=== PATIENT | female | born 1970 | race Caucasian/White ===

== ENCOUNTER 2020-10-04 22:03 | Emergency (ER) | payer OTHER, SELFPAY ==
[2020-10-04 22:10] VITALS: BP 198/88; PULSE 105; RESP 20; TEMP 36.5; O2SAT 97
--- NOTE | 2020-10-04 22:20 | ED.HA ---
HPI - Headache General Chief Complaint: Headache Stated Complaint: swelling in face Source: patient and RN notes reviewed Mode of arrival: ambulatory Limitations: no limitations History of Present Illness HPI Narrative: patient states her headache came after the sinus pressure on the left side of her face. She says it feels like she has had some sinus swelling. She has a history of sinusitis. She has not had any fever or chills. She has only had symptoms for 1 day. MD elicited complaint: headache Onset (ago): day(s) (1) Onset description: gradually Severity: similar to previous episodes Quality & Timing: throbbing Exacerbating factors: other ( Bending over) Associated symptoms: other ( sinus pressure) Treatments prior to arrival: acetaminophen, ibuprofen and other ( Benadryl and tramadol) Related Data Home Medications Medication Instructions Recorded Confirmed tramadol 50 mg PO PRN PRN 10/04/20 10/04/20 Allergies Allergy/AdvReac Type Severity Reaction Status Date / Time codeine Allergy Unknown Unknown Verified 10/04/20 22:16 Review of Systems Review of Systems: All systems reviewed & are unremarkable except as noted in HPI and below Constitutional: Constitutional: Denies chills and Denies fever(s) ENT: Reports nasal congestion and Denies sore throat PMFSH Past Medical History Medical History (Updated 10/04/20 @ 22:39 by Jose Manuel Chadwick MD) De Quervain's disease (tenosynovitis) Surgical History Surgical History (Updated 10/04/20 @ 22:39 by Jose Manuel Chadwick MD) Delivery by section History of bladder suspension procedure History of hysterectomy with bilateral oophorectomy Status post de Quervain's release surgery Family History Family History (Updated 08/14/14 @ 10:54 by DOCTOR UNKNOWN) Other Diabetes mellitus Family history of arthritis Family history of cardiovascular disease Family history of malignant neoplasm Family history of osteoporosis Social History Social History (Updated 10/04/20 @ 22:40 by Jose Manuel Chadwick MD) Smoking packs per day: 1 Smoking cigarettes per day: 20.0 Smoking status: Current every day smoker Tobacco type: cigarettes Alcohol intake: never Substance use: never Exam Const: General: healthy appearing and no acute distress Nutritional Appearance: well nourished Orientation/consciousness: patient oriented x3 Other: female 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 room 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 examination HENMT: Head: normal to inspection Ears: external ears normal, TM's normal bilaterally and EAC's normal General nose exam: Abnormal mucous membranes and turbinates present boggy bilateral and erythematous bilateral Face and sinus: sinus tenderness frontal (left) and maxillary (left) Mouth: Yes Normal oral and palatal mucosa present and Yes moist mucous membranes Throat: posterior oropharynx normal, tonsils normal and uvula midline Eyes: Conjunctivae: conjunctivae normal Pupils: Equal, round and reactive pupils present EOM: EOMs intact bilaterally Neck: Neck: normal visual inspection Resp: Effort & Inspection: normal respiratory effort Auscultation: clear to auscultation bilaterally Cardio: Rate: regular rate Rhythm: regular rhythm GI: GI Palp: Yes Soft to palpation and No Tenderness to palpation present (GI) Auscultation: normal bowel sounds Back/Spine/Pelvis: Cervical Spine: cervical ROM normal Thoracic/Lumbar Spine: thoraco-lumbar ROM normal Skin: General skin exam: normal color Rashes: no rashes Neuro: General: patient oriented x3, moves all extremities, no meningeal signs and no focal motor deficits Speech: normal speech Gait exam (Neuro): Normal gait present Extrem: General: normal to inspection and no clubbing, cyanosis or edema Psych: Appearance: grossly normal and well kempt Mental Status: mental status grossly normal Affect: normal affect Attitude: cooperative Thought content: Yes Normal thought content present Course Course Emergency Course: I josette
[2020-10-04 22:39] VITALS: BP 171/95; PULSE 80; RESP 20; O2SAT 98
== END 2020-10-04 22:40 | disposition home or self-care (01) ==
PROVIDERS: Emergency Provider Emergency Medicine; PCP Physician Assistant
DX: J01.00 Acute maxillary sinusitis, unspecified (principal)
CPT/HCPCS: 99281; 99282

== ENCOUNTER 2021-03-01 10:55 | Outpatient (CLI) | payer OTHER, SELFPAY ==
[2021-03-01 11:56] LABS: SARS-CoV-2 RNA PCR Negative (Negative)
== END 2021-03-01 10:56 | disposition home or self-care (01) ==
LOC: CHSLAB 10:57
PROVIDERS: PCP Physician Assistant; Visit Provider Physician Assistant
DX: Z20.822 Contact with and (suspected) exposure to COVID-19 (principal)
CPT/HCPCS: C9803; U0003; U0005

== ENCOUNTER 2021-06-06 15:03 | Outpatient (CLI) | payer OTHER, SELFPAY ==
[2021-06-06 16:36] LABS: SARS-CoV-2 RNA PCR Positive (Negative)
== END 2021-06-06 15:04 | disposition home or self-care (01) ==
LOC: CHSLAB 15:06
PROVIDERS: PCP Physician Assistant; Visit Provider Physician Assistant
DX: U07.1 COVID-19 (principal); B34.9 Viral infection, unspecified
CPT/HCPCS: C9803; U0003; U0005

== ENCOUNTER 2022-12-31 13:57 | Emergency (ER) | payer OTHER, SELFPAY ==
--- NOTE | ~2022-12-31 | XR_ITS ---
Clinical Indication: Shortness of breath, cough PA and lateral views of the chest: Comparison: 05/12/2014 Findings: The lungs are clear, without evidence of focal consolidation or pleural effusion. Cardiome diastinal silhouette is within normal limits. Bones and soft tissues are unremarkable. Impression: Normal chest. Reviewed, dictated and finalized at location . Impression: Normal chest.
--- NOTE | 2022-12-31 14:00 | ECG_ITS ---
Measurements Intervals Ozan Rate: 97 P: 78 ID: 128 QRS: 87 QRSD: 85 T: -10 QT: 357 QTc: 454 Interpretive Statements SINUS RHYTHM NONSPECIFIC ST & T-WAVE ABNORMALITY NO PREVIOUS ECG AVAILABLE FOR COMPARISON Electronically Signed On 12-31-2022 14:57:13 CDT by Jessica Guillaume M.D.
--- NOTE | 2022-12-31 14:02 | ED.SOB ---
HPI - SOB/Dyspnea General Chief Complaint: Shortness of Breath/Dyspnea Stated Complaint: chest pain Time Seen by Provider: 12/31/22 14:00 Source: patient Mode of arrival: ambulatory Limitations: no limitations History of Present Illness HPI Narrative: patient is a 52-year-old female with breathing shortness of breath and chest discomfort. Left shoulder pain. She has been coughing a lot lately. MD elicited complaint: shortness of breath, cough and pain with inspiration Pertinent past history: COPD Onset (ago): day(s) Timing: constant Severity: moderate Exacerbating factors: nothing Relieving factors: nothing Associated symptoms: pain with inspiration Treatment prior to arrival: none Related Data Home oxygen amount: none Allergies Allergy/AdvReac Type Severity Reaction Status Date / Time codeine Allergy Unknown Unknown Verified 10/04/20 22:16 Review of Systems Review of Systems: All systems reviewed & are unremarkable except as noted in HPI and below Constitutional: Constitutional: Reports no additional constitutional complaints Eyes: Eyes: Reports no additional eye complaints ENT: Reports system reviewed and no additional complaints, except as documented Cardiovascular: Cardiovascular: Reports no additional cardiovascular complaints Respiratory: Respiratory: Reports no additional respiratory complaints Gastrointestinal: Gastrointestinal: Reports no additional gastrointestinal complaints Genitourinary: Genitourinary: Reports no additional female genitourinary complaints Musculoskeletal: Musculoskeletal: Reports no additional musculoskeletal complaints Integumentary/Breasts: Skin/Breast: Reports system reviewed and no additional complaints, except as docu Neurologic: Reports system reviewed and no additional complaints, except as documented Psychiatric: Psychiatric: Reports no additional psychiatric complaints Endocrine: Endocrine: Reports no additional endocrine complaints Hematologic/Lymphatic: Hematologic/Lymphatic: Reports no additional hematologic/lymphatic complaints Allergic/Immunologic: Allergic/Immunologic: Reports no additional allergic/immunologic complaints [facility] Past Medical History Medical History De Quervain's disease (tenosynovitis) Surgical History Surgical History Delivery by section History of bladder suspension procedure History of hysterectomy with bilateral oophorectomy Status post de Quervain's release surgery Family History Family History Other Diabetes mellitus Family history of arthritis Family history of cardiovascular disease Family history of malignant neoplasm Family history of osteoporosis Social History Social History Smoking packs per day: 1 Smoking cigarettes per day: 20.0 Smoking status: Current every day smoker Tobacco type: cigarettes Alcohol intake: never Substance use: never Exam Const: General: healthy appearing Nutritional Appearance: well nourished HENMT: Head: normal to inspection Ears: external ears normal Eyes: Conjunctivae: conjunctivae normal Pupils: Equal, round and reactive pupils present Neck: Neck: normal visual inspection Chest: Chest palpation & inspection: normal inspection of the chest Resp: Effort & Inspection: normal respiratory effort Auscultation: wheezes Cardio: Rate: regular rate Rhythm: regular rhythm Heart sounds: no murmurs GI: Inspection: non-distended GI Palp: Yes Soft to palpation and No Tenderness to palpation present (GI) : General: Yes bladder normal to palpation Back/Spine/Pelvis: Back: no CVA tenderness Skin: General skin exam: normal color Rashes: no rashes Neuro: General: patient oriented x3, moves all extremities and no meningeal signs Extrem: G
[2022-12-31 14:17] VITALS: O2SAT 95
[2022-12-31] MEDS: IPRATROPIUM 0.5 MG/ALBUTEROL SULFATE 2.5 MG AMPUL.NEB 3 ML INHALATION (14:30)
[2022-12-31 14:37] VITALS: PULSE 93; RESP 18; O2SAT 94
[2022-12-31 14:47] VITALS: BP 146/68; PULSE 95; RESP 20; TEMP 36.8; O2SAT 96
[2022-12-31] MEDS: methylPREDNISolone SOD SUCC 125 MG VIAL IM (14:47)
[2022-12-31 14:51] VITALS: PULSE 93; RESP 18; O2SAT 94
[2022-12-31 14:54] LABS: Basophils Absolute Auto 0.03 K/mm3 (0.00-0.10); Basophils Percent Auto 0.2 % (0.0-1.0); Eosinophils Absolute Auto 0.31 K/mm3 (0.02-0.50); Eosinophils Percent Auto 2.5 % (1.0-6.0); Hematocrit 47.2 % (35.0-49.0); Hemoglobin 15.9 g/dL (12.0-15.0); Immature Granulocyte Absolute 0.05 K/mm3 (0.00-0.00); Immature Granulocyte Percent A 0.4 % (0.0-0.0); Lymphocytes Absolute Auto 3.06 K/mm3 (1.10-4.50); Lymphocytes Percent Auto 24.7 % (18.0-42.0); Mean Corpuscular HGB Conc 33.7 g/dL (32.0-36.0); Mean Corpuscular Hemoglobin 29.7 pg (27.0-31.0); Mean Corpuscular Volume 88.2 fL (78.0-102.0); Mean Platelet Volume 8.7 fl (9.2-11.8); Monocytes Absolute Auto 0.76 K/mm3 (0.10-0.90); Monocytes Percent Auto 6.1 % (2.0-11.0); Neutrophils Absolute Auto 8.2 K/mm3 (1.7-7.2); Neutrophils Percent Auto 66.1 % (50.0-70.0); Platelet Count Result 256 K/mm3 (150-420); Red Blood Count 5.35 M/mm3 (4.20-5.40); Red Cell Distribution Width 12.9 % (11.6-14.4); White Blood Count 12.4 K/mm3 (4.8-10.8)
[2022-12-31 15:12] LABS: Alanine Aminotransferase 33 U/L (14-59); Albumin Level 3.5 g/dL (3.4-5.0); Alkaline Phosphatase 115 U/L (46-116); Anion Gap 10 mmol/L (8-16); Aspartate Amino Transferase 11 U/L (15-37); Bilirubin,Total 0.2 mg/dL (0.00-1.00); Blood Urea Nitrogen 8 mg/dL (7-18); Calcium 8.8 mg/dL (8.5-10.1); Carbon Dioxide 26 mmol/L (21-32); Chloride 105 mmol/L (98-108); Estimated CRCL calculation 54 ml/min; Estimated Glomerular Filt Rate > 60; Glucose 99 mg/dL (70-99); Osmolality Calculated 290 mOsm/kg (285-295); Potassium 3.8 mmol/L (3.5-5.1); Sodium 141 mmol/L (136-145); Total Protein 6.6 g/dL (6.4-8.2); Troponin I 4.9 ng/L (0.00-60.4)
[2022-12-31 15:51] VITALS: BP 130/62; PULSE 92; RESP 20; TEMP 36.7; O2SAT 96
== END 2022-12-31 15:53 | disposition home or self-care (01) ==
PROVIDERS: Emergency Provider Emergency Medicine; PCP Physician Assistant
DX: J40 Bronchitis, not specified as acute or chronic (principal); J44.9 Chronic obstructive pulmonary disease, unspecified; F17.210 Nicotine dependence, cigarettes, uncomplicated
CPT/HCPCS: 36415; 71046; 80053; 84484; 85025; 93005; 94640; 96372; 99284; J2930

== ENCOUNTER 2024-11-11 17:05 | Outpatient (CLI) | payer OTHER, SELFPAY ==
--- NOTE | ~2024-11-11 | XR_ITS ---
HISTORY: PAIN IN RIGHT SHOULDER COMPARISON: None TECHNIQUE: 3 views of the right shoulder were performed FINDINGS: No acute fracture. The glenohumeral and acromioclavicular joint space is maintained The visualized portion of the adjacent right lung is clear. The humeral head is well seated within the glenoid fossa. IMPRESSION: No acute fracture or anterior dislocation. If clinical suspicion persists, cross-sectional imaging with MRI is suggested. Reviewed, dictated and finalized at location A.
--- OUTSIDE RECORDS SUMMARY | 2024-11-11 17:13 | XMS_ITS | Continuity of Care Document ---
Author Name [facility] Organization [facility] Care Team Providers Care Sew On Operator Name Role Phone [facility] Unavailable Unavailable Medications Combined list of outpatient medications from [facility] of Defense and Veterans Affairs facilities.Medications provided include 1) outpatient medications from the last 15 months, and 2) patient-reported medications. Medication Details Route Status Patient Instructions Prescription Expires Prescription Number Last Dispense Date Ordering Provider Order Date Order Qty Source AMOXICILLIN (AMOXICILLI N), 875MG, TABLET, ORAL, [employer], 100 ea. BOTTLE Active [id number] 2023 20 Pharmac y Data Transac tion Service Facilit y Social History Combined list of available smoking, tobacco, and other social history from Department of Defense and Veterans Affairs facilities. Social History Type Response Date Comment Sourc e This section is an empty social history section. [employer]
--- OUTSIDE RECORDS SUMMARY | 2024-11-11 17:13 | XMS_ITS | Clinical Summary ---
Author Organization [facility] Address [address] [place] [address] Care Team Providers Care Ged Tutor Name Role Phone Fuentes Salomon Primary Care Provider [phone] Source Comments [facility],non-owned Affiliates and Associated Physician Practices is amultiple site organization consisting of ambulatory clinics and hospital sitesin [place], [place], [place] and [place]. This disclosure is being madepursuant to the Care Everywhere program and may not contain all information available regarding this patient. Last updated 18.[facility] Allergies Active Allergy Reactions Criticality Noted Date Comments Codeine Itching,Unknown 10/01/2015 Reaction: Itching, Hydrocodone-Acetaminophen Vomiting 03/05/2020 Tramadol Itching,Unknown 10/01/2015 Reaction: itching, Medications * Be aware that medications may not be up to date on this document. Alwaysverify current medications with the patient. diphenhydramin e (BENADRYL) 25mg/50ml SOLN ivpb 25 mg once Active ibuprofen (MOTRIN) 600 MG tablet Take 1 tablet by mouth every 6 hours as needed for Pain 40 tablet 1 0 Active docusate sodium (COLACE) 100 MG capsule Take 1 capsule by mouth 2 times daily 60 capsule 1 0 Active Additional Information Patient not taking.Reported on 03/31/2020 oxyCODONE, immediate release, (ROXICODONE) 5 MG tablet Take 1 tablet by mouth every 4 hours as needed for Pain 20 tablet 0 Active acetaminophen (TYLENOL) 325 MG tablet Take 2 tablets by mouth every 6 hours as needed for Fever or Pain Maximum allowable Acetaminophen amount = 4 Grams (4000 mg) / 24 hours. 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 Never 02/10/2020 Average Number of Drinks Not on file 020 Frequency of Binge Drinking Not on file 01/26 Comments No Sex and Gender Information Value Date Recorded Sex Assigned at Not on file Legal Sex Female 8:34 AM CDT Gender Identity Not on file Sexual Orientation Not on file Last Filed Vital Signs Vital Sign Reading Time Taken Comments Blood Pressure 130/62 03/31/2020 11:06 AM 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 Pulse 95 03/16/2020 12:40 PM CDT Temperature 36.8 C (98.2 F) 03/16/2020 12:04 PM CDT Respiratory Rate 16 03/16/2020 12:40 PM CDT Oxygen Saturation 100% 03/16/2020 12:40 PM CDT Inhaled Oxygen Concentration - - Weight 62.1 kg (137 lb) 03/31/2020 11:06 AM 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 Height 157.5 cm (5' 2) 03/31/2020 11:06 AM 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 Body Mass Index 25.06 03/31/2020 11:06 AM 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 Plan of Treatment Health Maintenance Due Date Last Done Comments COLOGUARD (AGES 45-75) - COL ON CA SCREENING 1971 COLON MONITORING 1971 COLONOSCOPY - COLON CA SCREENING 1971 CT COLONOGRAPHY - COLON CA SCREENING 1971 Colorectal Cancer Screening 1971 FIT - COLON CA SCREENING 1971 FLEX SIG - COLON CA SCREENING 1971 LIPID TESTING 1971 MAMMOGRAM 1971 HIV SCREENING 1986 HEPATITIS C SCREENING 03/29/1989 DTAP/TDAP/TD VACCINES (1 - Tdap) 1990 HEPATITIS B VACCINE (1 of 3 - 19+ 3-dose series) 1990 PNEUMOCOCCAL VACCINE 50+ (1 of 1 - PCV) 2021 ZOSTER VACCINE (1 of 2) 2021 SCREENING FOR DIABETES 03/11/2023 03/11/2020 COVID-19 VACCINE (1 - 2023-2 5 season) 2024 DEPRESSION SCREENING 05/28/2024 INFLUENZA VACCINE (Season Ended) 2025 HIB VACCINE Aged Out No longer eligi ble based on patient's age to complete this topic HPV VACCINE Aged Out No longer eligi ble based on patient's age to complete this topic MENINGOCOCCAL (Group B) VACC INE SHARED DECISION-MAKING Aged Out No longer eligibl e based on patient's age to complete this topic MENINGOCOCCAL GROUPS A/C/Y/W VACCINE Aged Out No longer eligible b ased on patient's age to complete this topic Procedures Procedure Name Priority Date/Time Associated Diagnosis Comments COMPREHENSIVE METABOLIC PANEL STAT 03/11/2020 10:32 AM CDT Preop testing from Last 3 Months or Most Recently Relevant to Health Maintenance Results * (ABNORMAL) COMPREHENSIVE METABOLIC PANEL (03/11/2020 10:32 AM CDT) Glucose 116(H) 70 - 105 mg/dL 03/11/2020 11:16 AM CDT [facility] Sodium 140 136 - 145 mmol/L 03/11/2020 11:16 AM CDT [facility] Potassium 4.3 3.5 - 5.1 mmol/L 03/11/2020 11:16 AM CDT [facility] Chloride 109(H) 98 - 107 mmol/L 03/11/2020 11:16 AM CDT [facility] CO2 22(L) 23 - 31 mmol/L 03/11/2020 11:16 AM CDT [facility] Calcium 9.2 8.4 - 10.4 mg/dL 03/11/2020 11:16 AM CDT [facility] Anion Gap 9 8 - 16 mmol/L 03/11/2020 11:16 AM CDT [facility] BUN 10 7 - 18.7 mg/dL 03/11/2020 11:16 AM CDT [facility] Creatinine 0.79 0.57 - 1.11 mg/dL 03/11/2020 11:16 AM CDT [facility] Alkaline Phosphatase 102 39 - 139 U/L 03/11/2020 11:16 AM CDT [facility] ALT 16 0 - 61 U/L 03/11/2020 11:16 AM CDT [facility] AST 13 5 - 34 U/L 03/11/2020 11:16 AM CDT [facility] Protein Total 6.9 6.4 - 8.3 gm/dL 03/11/2020 11:16 AM CDT [facility] Albumin 4.2 3.5 - 5.2 gm/dL 03/11/2020 11:16 AM CDT [facility] Bilirubin Total 0.3 0.2 - 1.2 mg/dL 03/11/2020 11:16 AM CDT [facility] eGFR by MDRD >60 >60 mL/min/1.7 3m2 03/11/2020 11:16 AM CDT [facility] eGFR by MDRD >60 >60 mL/min/1.7 3m2 03/11/2020 11:16 AM CDT [facility] Blood BLOOD SPECIMEN / Unknown Venipuncture / Unknown 03/11/2020 10:32 AM CDT 03/11/2020 10:55 AM CDT us Toshia Husain MD LAB - CHEMISTRY ORDERABLES Final Result [facility] [address] [place] [address] from Last 3 Months or Most Recently Relevant to Health Maintenance Insurance Care Teams Ged Tutor Relationship Specialty Start Date End Date Fuentes Salomon PA [address] [place] [address] PCP - General Physician Chemical Test Engineer 03/11/20
--- OUTSIDE RECORDS SUMMARY | 2024-11-11 17:14 | XMS_ITS | Continuity of Care Document ---
Author Organization Ronald PACHECO [facility] Address [address] [place] [address] Care Team Providers Care Roof Fitter Name Role Phone MARIYA SALOMON Primary Care Provider SAIRA GARCIA Director Of Development And Marketing Assessment No assessment recorded. Plan of Treatment Reminders Order Date Submit Date Provider Last Modified By Organization Details Last Modified Time Details Appointments ANY 15 2024 03:30P Tonio Salomon PA-C Not available Not available Not available Lab None recorded. Referral None recorded. Procedures None recorded. Surgeries None recorded. Imaging XR, shoulder 2024 025 [facility] [address] [place] [address], [address], 11/11/2024 17:45:28 Medication Orders None recorded. Patient TargetsNo targets recorded. Patient InstructionsNo instructions recorded. Reason for Referral None Reported. Problems Name Problem SNOMED Code Status Onset Date Resolution Date Notes Provider Name and Address Organization Details Recorded Time Upper respiratory infection [id number] NOR[place], [place] [facility] 09:47:54 Spasm of back muscles 608373964 [place] [facility] 09:47:55 Disorder of rotator cuff [id number] [place] [facility] 09:47:54 Insomnia 382402507 [place] [facility] 09:47:54 Anterior knee pain 590146126 [place] [facility] 09:47:54 Sinusitis 35659404 Active Clarita Jackson [place] [facility] 09:47:54 Anxiety 49972295 Active Clarita Jackson [place] [facility] 09:47:54 Problem Notes None recorded. Procedures Surgical History Date Name Laterality Status Provider Name and Address Organization Details Recorded Time 02/09/20 18 Most Recent Mammogram completed Mabel Daily [place] [facility] 10/01/2019 14:59:34 02/09/20 Date of Last Mammogram completed Clarita Jackson [place] [facility] 12/12/2021 12:03:40 12/23/19 18 repair of cystocele completed Saira Garcia [place] [facility] 10/29/2019 11:03:07 05/28/19 05 Total hysterectomy completed Melida Saldivar APN, ORAL SURGERY TECHNICIAN-C Attn: [address] [place], [address], [place] [facility] 09/19/2023 12:17:52 05/28/18 96 reduction plasty of bilateral breasts completed Saira Garcia [place] [facility] 10/29/2019 11:00:34 Other completed Mabel Daily [place] [facility] 10/01/2019 15:04:34 Arthroscopic Surgery completed Kat Gutierrez [place] [facility] 07/02/2014 14:42:03 Caesarean Section completed [place]abel Daily [place] [facility] 10/01/2019 15:04:16 Imaging Results None recorded. Procedure Notes None recorded. Medical Equipment None Reported. Allergies Allergen ID Allergen Name Allergen Category Reaction Reaction Severity Criticality Documentation Date Start Date Code Code System Note Provider Name and Address Organization Details Recorded Time 61324 codeine medicatio n rash mild Not available 07/02/20142019 2670 [facility] NORMA [place], [place] - [facility] 1 09:47:54 47771 acetamino phen / hydrocodo ne medicatio n Not available Not available Not available 07/02/2014 49492 2 [facility] NORMA [place], [place] - [facility] 5 14:42:03 Medications Name Sig Start Date Stop Date Status Note LastModified by Organization Details LastModified Time cyclobenz aprine 10 mg tablet TAKE ONE TABLET BY MOUTH 3 TIMES A DAY NEEDED 2024 active Not Available Not Available Not Avai lable amoxicill in 500 mg capsule Take 1 capsule every 8 hours by oral route for 10 days. 04/25 completed Not Available Not Available Not Available bupropion HCl SR 150 mg tablet,12 hr sustained -release Take 1 tablet twice a day by oral route for 90 days. 07/01 completed Not Available Not Available Not Available venlafaxi ne ER 37.5 mg capsule,e xtended release 24 hr Take 1 capsule every day by oral route as directed for 30 days, for hot flashes. 2024 active Not Available Not Available Not Avai lable atorvasta tin 20 mg tablet Take 1 tablet every day by oral route for 90 days. 07/01 completed Not Available Not Available Not Available trazodone 50 mg tablet Take 1 tablet every day by oral route as needed for 30 days. 12/07 completed Not Available Not Available Not Available valacyclo vir 1 gram tablet Take 1 tablet every 12 hours by oral route for 7 days. 09/15 completed Not Available Not Available Not Available Levaquin 750 mg tablet Take 1 tablet every day by oral route for 5 days. 12/07 completed Not Available Not Available Not Available ondansetr on HCl 4 mg tablet Take 1 tablet twice a day by oral route as needed for 5 days. 09/30 completed Not Available Not Available Not Available Medrol (Clay) 4 mg tablets in a dose pack Take 1 dose pk by oral route as directed . 09/15 completed Not Available Not Available Not Available sumatript an 50 mg tablet Take 1 tablet twice a day by oral route as directed for 10 days. 09/30 completed Not Available Not Available Not Available sulfameth oxazole 800 mg-trimet hoprim 160 mg tablet Take 1 tablet every 12 hours by oral route for 10 days. 05/02 completed Not Available Not Available Not Available tramadol 50 mg tablet 07/18 /2022 completed Not Available Not Available Not Available Depo-Medr ol 80 mg/mL suspensio n for injection Take 1 mL by injectio n route. 01/15 completed Not Available Not Available Not Available meloxicam 7.5 mg tablet 08/23 completed Not Available Not Available Not Available amoxicill in 875 mg tablet Take 1 tablet every 12 hours by oral route for 10 days. 07/18 completed Not Available Not Available Not Available temazepam 30 mg capsule Take 1 capsule every day by oral route at bedtime for 30 days. 04/25 completed Not Available Not Available Not Available imiquimod 5 % topical cream packet APPLY TO THE AFFECTED AREA(S) BY TOPICAL ROUTE 5 TIMES PER WEEK 10/28 completed Not Available Not Available Not Available benzonata te 100 mg capsule Take 1 capsule 3 times a day by oral route for 10 days. 11/27 completed Not Available Not Available Not Available cephalexi n 500 mg capsule Take 1 capsule every 8 hours by oral route as directed for 10 days. 09/30 completed Not Available Not Available Not Available neomycin- polymyxin -dexameth 3.5 mg/mL-10, 000 unit/mL-0 .1% eye drops INSTILL 1 DROP INTO AFFECTED EYE(S) BY OPHTHALM IC ROUTE EVERY 3-4 HOURS 04/05 completed Not Available Not Available Not Available diclofena c sodium 75 mg tablet,de layed release Take 1 tablet twice a day by oral route for 30 days. 09/30 completed Not Available Not Available Not Available gabapenti n 100 mg capsule Take 1 capsule 3 times a day by oral route for 30 days. 09/15 completed Not Available Not Available Not Available diazepam 10 mg tablet Take 1 tablet 3 times a day by oral route for 30 days. 12/07 completed Not Available Not Available Not Available ibuprofen 600 mg tablet Take 1 tablet 3 times a day by oral route for 90 days. 07/01 completed Not Available Not Available Not Available ketorolac 60 mg/2 mL intramusc ular solution Inject 2 mL by intramus cular route. 07/25 completed Not Available Not Available Not Available atenolol 50 mg tablet Take 1 tablet every day by oral route for 90 days. 07/01 completed Not Available Not Available Not Available amoxicill in 875 mg-potass ium clavulana te 125 mg tablet Take 1 tablet twice a day by oral route for 10 days. 12/12 completed Not Available Not Available Not Available oxycodone 5 mg tablet 03/01 completed Not Available Not Available Not Available azithromy bonny 500 mg tablet Take 1 tablet every day by oral route for 3 days. 08/27 completed Not Available Not Available Not Available escitalop gennaro 20 mg tablet Take 1 tablet every day by oral route for 30 days. 12/07 completed Not Available Not Available Not Available Benadryl active otc for allergie s Not Available Not Available Not Available varenicli ne tartrate 1 mg tablet TAKE ONE TABLET BY MOUTH TWICE A AY FOR 21 DAYS (START 1 MG TABS AFTER 0.5 MG TABS TAKEN) 04/25 completed Not Available Not Available Not Available varenicli ne tartrate 0.5 mg tablet TAKE ONE TABLET BY MOUTH DAILY FOR 3 DAYS, THEN 1 TABLET TWICE A DAY FOR 4 DAYS 04/25 completed Not Available Not Available Not Available Chantix Starting Month Box 0.5 mg (11)-1 mg (42) tablets in dose pack Take 1 startr pk by oral route as directed . 04/25 completed Not Available Not Available Not Available Women's 50 Plus Multivita min 400 mcg-500 mg calcium-2 0 mcg tablet Take 1 tablet every day by oral route as directed for 30 days, for bone supoprt. 2024 active Not Available Not Available Heaven Newton ODT 75 mg disintegr ating tablet 04/25 completed Not Available Not Available Not Available Vitals Date Recorded Body height Body mass index (BMI) Body weight Oxygen saturation Oxygen saturation in Arterial blood by Pulse oximetry Heart rate Respiratory rate Systolic blood pressure Diastolic blood pressure Provider Name and Address Organization Details Last Updated DateTime 5 157.48 cm 22.7 kg/m2 93687.4 5 g 98 % 98 % 105 /min 18 /min 168 mm[Hg] 82 mm[Hg] Shannan Oliveira [place] - [facility] 5 16:29:16 Social History Question Answer Notes LastModified by Organizat ion Details LastModified Time Tobacco Smoking Status Current Every Day Smoker Kat Gutierrez MA [facility], [place] - [facility] 07/02/2014 14:42:02 Is Blood Transfusion Acceptable In An Emergency? Yes Information not available 10/01/2019 What Is Your Level Of Caffeine Consumption? Moderate Information not available 10/01/2019 How Much Tobacco Do You Chew? None Information not available 10/01/2019 In The 14 Days Before Symptom Onset, Have You Had Close Contact With A Laboratory-confirm ed COVID-19 While That Case Was Ill? No Information n ot available 03/01/2021 In The 14 Days Before Symptom Onset, Have You Had Close Contact With A Person Who Is Under Investigation For COVID-19 While That Person Was Ill? No Information not available 03/01/2021 Have You Been To An Area Known To Be High Risk For COVID-19? No Information not available 03/01/2021 What Type Of Diet Are You Following? REGULAR Information n ot available 10/01/2019 Which Illicit Or Recreational Drugs Have You Used? Denies Information not available 10/01/2019 Education 2 Year College Information not available 10/01/2019 Live Alone Or With Others? With Others Information not available 10/01/2019 What Was The Date Of Your Most Recent Tobacco Screening? 11/11/2024 Information not available 11/11/2024 How Many Children Do You Have? 3 Information not available 10/01/2019 Performs Monthly Self-breast Exam? Yes Information no t available 10/01/2019 Do You Use Protection During Sex? No Information not available 10/01/2019 What Is Your Relationship Status? Information not available 10/01/2019 Seat Belts Used Routinely Yes Information not available 10/01/2019 Are You Sexually Active? Yes Information not available 10/01/2019 Do You Have Smoke And Carbon Monoxide Detectors In Your Home? Yes Information not available 03/01/2021 At What Age Did You Start Smoking Tobacco? 16 Information not available 10/01/2019 Are You Passively Exposed To Smoke? Yes Information no t available 03/01/2021 How Much Tobacco Do You Smoke? 0.5 PPD Information not available 12/12/2021 General Stress Level Medium Information not available 10/01/2019 Do You Use Sunscreen Routinely? No Information not available 10/01/2019 Has Tobacco Cessation Counseling Been Provided? Yes Information not available 12/27/2018 On What Date Was Tobacco Cessation Counseling Provided? 11/11/2024 Information not available 11/11/2024 How Many Years Have You Smoked Tobacco? 33 Information not available 10/01/2019 Sex: Female Functional Status Question Answer Note LastModified by Organizat ion Details LastModified Time Do you use any illicit or recreational drugs? No Information not available 03/01/2021 Do you or have you ever used any other forms of tobacco or nicotine? No Information not available 03/01/2021 What is your level of alcohol consumption? Occasional Information not available 10/01/2019 Do you or have you ever used smokeless tobacco? Never used smokeless tobacco Information not available 10/01/2019 Are you currently employed? 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 Never used electronic cigarettes Information not available 10/01/2019 What is your exercise level? Moderate Information not available 10/01/2019 Mental Status Question Answer Note LastModified by Organization D etails LastModified Time Do you feel stressed (tense, restless, nervous, or anxious, or unable to sleep at night)? [id number] [email or web address] Information not available 07/20/2022 Family History Relationship Description Onset Age of this Age Resolved Age Notes LastModified by Organization Details LastModified Time Mother Asthma Not availabl e 12/08/2015 16:45:22 Mother Depressive disorder Not available 11/25 16:45:22 Mother Heart disease Not available 11/25 16:45:22 Mother Migraine Not availa ble 12/08/2015 16:45:22 Mother Osteoporosis Not av ailable 12/08/2015 16:45:22 Brother Attention deficit hyperactivit y disorder Not available 16:45:22 Brother Depressive disorder Not available 11/25 16:45:22 Maternal Grandmother Heart disease crexfordma Not available 10/28 10:29:40 Paternal Grandfather Malignant neoplasm of lung crexfordma Not available 10/28 10:30:11 Paternal Aunt Malignant neoplasm of lung crexfordma Not available 10/28 10:30:11 Paternal Uncle Malignant neoplasm of lung crexfordma Not available 10/28 10:30:11 Medical History Condition Response Other N High Blood Pressure N Breast Cancer N Kidney or Bladder Problems N Thyroid Problems N GI Problems N Lung Disease N Depression Y Blood Clots N Acne Y Eating Disorder N Breast Problem N Anemia N Anesthesia Complications N Headaches/Migraines Y Anxiety Disorder N Ovarian Cancer N Diabetes N Muscle, Joint, or Bone Problems Y Blood Transfusions N Seizures/Epilepsy Y Polyps N Infertility N Acid Reflux (GERD) Y Cancer N Abuse/Domestic Violence N Asthma N Endometriosis N High Cholesterol N Hepatitis N Liver Disease N Heart Disease N Headaches Y Pre-Eclampsia N Osteoporosis N Gynecological History Statement/Question Response Date of Last Mammogram 02/08/2018 On BCP's at Conception? N STIs/STDs N HPV Vaccine N Most Recent Mammogram 02/08/2018 Age at Menarche 12 Current Control Method Hysterectom y Age at First Child 24 Sexually Active? Y Menses Monthly N Date of Last Pap Smear Sexual Problems? N LMP Approximate Obstetrics History GPAL:G 3 P 3 0 0 3 Type Value Multiple Births 0 Full Term 3 Induced 0 Spontaneous 0 Premature 0 Living 3 Ectopics 0 Total 3 Immunizations Vaccine Type Date Status Note Provider Nam e and Address Organization Details Recorded Time COVID-19, mRNA, LNP-S, PF, 30 mcg/0.3 mL dose 10/15/2020 completed STEVEN CHUA NP Attn: [address] [place], [address], [place] [facility] 09/15/2024 17:55:00 COVID-19, mRNA, LNP-S, PF, 30 mcg/0.3 mL dose 11/05/2020 completed STEVEN CHUA NP Attn: Accounting, [address] , [place], [address], [facility] - [facility] 09/15/2024 17:55:00 Past Encounters Encounter ID Performer Location Encounter Start Date Encounter Closed Date Diagnosis/Indication Diagnosis SNOMED-CT Code Diagnosis ICD10 Code Diagnosis Note [id number] Maicol Hector MD [facility] [address] [place] [address] 11/11/2024 16:16:47 11/11/2024 16:49:04 Pain of right shoulder region [id number] M25.511 Health Concerns Section Related Observation LastModified by Organization Detai ls LastModified Time None Recorded Concern Status LastModified by Organization Details LastModified Time None Recorded Payers Encounter Date Sequence Insurance Name Policy Number Policy Frazier Covered Member ID Frazier Member ID Guarantor Name 11/11/2024 TRACIE - CLAIMS [employer] ([facility]) Ayse Ballard Notes Date Note Type Note Provider Name and Address Organization Details Recorded Time 11/11/2024 text/html Sunday at work was taking a 12 pk of water off the top shelf at [facility]...felt sharp immediated stabbing pain rt shoulder..hx of rotator cuff surgery on this shoulder before...says still painful and feels swollen... Mariya Salomon PA-C Attn: Accounting,[address] [facility], [place], [address], [place] [facility] 11/11/2024 16:49:01 OBGyn Episode No OBEpisode recorded.
--- OUTSIDE RECORDS SUMMARY | 2024-11-11 17:14 | XMS_ITS | Clinical Summary ---
Author Organization [facility] Address [address] [place] [address] Phone Care Team Providers Care Flumer Name Role Phone Fuentes Salomon Primary Care Provider [phone] Allergies Active Allergy Reactions Criticality Noted Date Comments Codeine Unknown 10/01/2015 Tramadol Unknown 10/01/2015 Medications naproxen (NAPROSYN) 250 MG Tablet Take 250 mg by mouth 2 times daily (with meals). Active Social History Tobacco Use Types Packs/Day Years Used Date Smoking Tobacco: Every Day Cigarettes 1.5 30 Smokeless Tobacco: Never Alcohol Use Standard Drinks/Week Comments Yes 0 (1 standard drink = 0.6 oz pur e alcohol) Comments No Sex and Gender Information Value Date Recorded Sex Assigned at Not on file Legal Sex Female 9:48 PM CDT Gender Identity Not on file Sexual Orientation Not on file Last Filed Vital Signs Vital Sign Reading Time Taken Comments Blood Pressure 158/94 12/31/2018 2:10 PM CDT Pulse 89 12/31/2018 3:23 PM CDT Temperature 37 C (98.6 F) 12/31/2018 2:10 PM CDT Respiratory Rate 16 12/31/2018 3:23 PM CDT Oxygen Saturation 99% 12/31/2018 3:23 PM CDT Inhaled Oxygen Concentration - - Weight 65.8 kg (145 lb) 12/31/2018 2:10 PM CDT Height 157.5 cm (5' 2) 12/31/2018 2:10 PM CDT Body Mass Index 26.52 12/31/2018 2:10 PM CDT Plan of Treatment Health Maintenance Due Date Last Done Comments Hepatitis C Virus (HCV) Screening 1971 TdaP Immunization 1971 Hepatitis B Immunization (1 of 3 - 19+ 3-dose series) 1990 Cologuard 2016 Colonoscopy 2016 Colorectal Cancer Screening 2016 Immunochemical Fecal Occult Blood 2016 Pneumococcal Immunization (5 0+ years) (1 of 1 - PCV) 2021 Zoster Immunization (1 of 2) 2021 SARS-COV-2 Immunization (3 - 2023- season) 2024 11/05/2020, 10/15/2020 Influenza Immunization (Seas on Ended) 2025 Respiratory Syncytial Virus (RSV) Immunization (Adult) (1 - 1-dose 75+ series) 2046 Mammogram Discontinued 12/22/2017 Discussion re Starting/Frequency of Mammograms Discontinued 02/08/2018, 12/22/2017 Human Papillomavirus (HPV) Immunization Aged Out No longer eligible based on patient's age to complete this topic Meningococcal Immunization (ACWY) Aged Out No longer eligible based on patient's age to complete this topic Rotavirus Immunization Aged Out No lo nger eligible based on patient's age to complete this topic Procedures Procedure Name Priority Date/Time Associated Diagnosis Comments FAWN DIAG LEFT UNILATERAL DIGITAL W CAD W FROYLAN Routine 02/08/2018 10:56 AM CDT Unspecified lump in unspecified breast FAWN SCREENING BILATERAL DIGITAL W CAD W FROYLAN Routine 12/22/2017 12:09 PM CDT Encounter for screening mammogram for malignant neoplasm of breast from Last 3 Months or Most Recently Relevant to Health Maintenance Results * FAWN DIAG LEFT UNILATERAL DIGITAL W CAD W FROYLAN (02/08/2018 10:56 AM CDT) Anatomical Region Laterality Modality breast Left Mammography 02/08/2018 10:1 7 AM CDT Narrative 02/08/2018 11:32 AM CDT - FAWN DIAG LEFT UNILATERAL DIGITAL W CAD W FROYLAN - FAWN US BREAST LIMITED LT UNILATERAL LEFT DIGITAL DIAGNOSTIC MAMMOGRAM WITH CAD AND TARGETED LEFT ULTRASOUND WITH MEDIOLATERAL MEDIOLATERAL OBLIQUE CRANIOCAUDAL SPOT COMPRESSION: 02/08/2018 The study was acquired using digital technology and interpreted from soft copy. Current study was also evaluated with ICAD version 7.2. CLINICAL: Diagnostic study. Patient presents for a follow up from her baseline screening for a 3 cm focal asymmetry in her left breast (4 o'clock posterior depth). Previous history of bilateral breast reduction surgery in 1995. No personal history of cancer. No family history of breast cancer. COMPARISONS: Comparison is made to exam dated: 12/22/2017 [facility]. BREAST TISSUE:There are scattered fibroglandular densities in the left breast. FINDINGS: LEFT DIAGNOSTIC MAMMOGRAM: Additional views of the left breast demonstrate a persistent linear focal asymmetry at the 4 o'clock position of the left breast posteriorly. Further evaluation was obtained with sonography. No othersignificant masses, calcifications, or other findings are seen in the breast on the mammogram. TARGETED LEFT BREAST ULTRASOUND: No lesions is seen in the left breast to correspond to the mammographic density. The mammographic lesion is likely asymmetric breast tissue and will be classified as probably benign. IMPRESSION: OVERALL STUDY BIRADS: 3 PROBABLY BENIGN A follow-up mammogram in 6 months is recommended to demonstrate stability. The patient has been or will be contacted. Electronically signed by: Danielito Young M.D. ll/:02/08/2018 11:19:37 Instrument Maker And Repairer: Michelle Shields (Caitlin), [facility] letter sent: Birad 3 Followup Reading location: [facility] OVERALL STUDY BIRADS: 3 Probably benign Procedure Note Danielito Young MD - 02/08/2018 - FAWN DIAG LEFT UNILATERAL DIGITAL W CAD W FROYLAN - FAWN US BREAST LIMITED LT UNILATERAL LEFT DIGITAL DIAGNOSTIC MAMMOGRAM WITH CAD AND TARGETED LEFT ULTRASOUND WITH MEDIOLATERAL MEDIOLATERAL OBLIQUE CRANIOCAUDAL SPOT COMPRESSION: 02/08/2018 The study was acquired using digital technology and interpreted from soft copy. Current study was also evaluated with ICAD version 7.2. CLINICAL: Diagnostic study. Patient presents for a follow up from her baseline screening for a 3 cm focal asymmetry in her left breast (4 o'clock posterior depth). Previous history of bilateral breast reduction surgery in 1995. No personal history of cancer. No family history of breast cancer. COMPARISONS: Comparison is made to exam dated: 12/22/2017 [facility]. BREAST TISSUE:There are scattered fibroglandular densities in the left breast. FINDINGS: LEFT DIAGNOSTIC MAMMOGRAM: Additional views of the left breast demonstrate a persistent linear focal asymmetry at the 4 o'clock position of the left breast posteriorly. Further evaluation was obtained with sonography. No othersignificant masses, calcifications, or other findings are seen in the breast on the mammogram. TARGETED LEFT BREAST ULTRASOUND: No lesions is seen in the left breast to correspond to the mammographic density. The mammographic lesion is likely asymmetric breast tissue and will be classified as probably benign. IMPRESSION: OVERALL STUDY BIRADS: 3 PROBABLY BENIGN A follow-up mammogram in 6 months is recommended to demonstrate stability. The patient has been or will be contacted. Electronically signed by: Danielito Young M.D. ll/:02/08/2018 11:19:37 Instrument Maker And Repairer: Michelle Shields (R), [facility] letter sent: Birad 3 Followup Reading location: [facility] OVERALL STUDY BIRADS: 3 Probably benign Raisa Da Silva APRN, CNP IM MAMMO ORDERABLES Elyssa l Result * [facility] SCREENING BILATERAL DIGITAL W CAD W FROYLAN (12/22/2017 12:09 PM CDT) Anatomical Region Laterality Modality breast Bilateral Mammography 12/22/2017 11:4 8 AM CDT Narrative 12/24/2017 11:27 AM CDT - FAWN SCREENING BILATERAL DIGITAL W CAD W FROYLAN BILATERAL DIGITAL SCREENING MAMMOGRAM 3D/2D WITH CAD WITH MEDIOLATERAL OBLIQUE CRANIOCAUDAL: 12/22/2017 The study was acquired using digital technology and interpreted from soft copy. Current study was also evaluated with ICAD version 7.2. CLINICAL: Baseline screening. Patient has no complaints. No personal history of cancer. No family history of breast cancer. COMPARISONS: No prior exams were available for comparison. BREAST TISSUE:There are scattered fibroglandular densities in both breasts. FINDINGS: There is a 3 cm focal asymmetry in the left breast at 4 o'clock posterior depth. No other significant masses, calcifications, or other findings are seen in either breast. IMPRESSION: BI-RAD 0 ADDITIONAL IMAGING EVALUATION NEEDED The 3 cm focal asymmetry in the left breast is indeterminate. An immediate follow-up is recommended. The patient has been or will be contacted. Electronically signed by: Danielito Young M.D. /penrad:12/24/2017 08:46:59 Instrument Maker And Repairer: Zara MCKEON (R)), [facility] letter sent: Additional Imaging Reading location: [place] BI-RADS: 0 Additional Imaging Evaluation Needed Procedure Note Danielito Young MD - 12/24/2017 - FAWN SCREENING BILATERAL DIGITAL W CAD W FROYLAN BILATERAL DIGITAL SCREENING MAMMOGRAM 3D/2D WITH CAD WITH MEDIOLATERAL OBLIQUE CRANIOCAUDAL: 12/22/2017 The study was acquired using digital technology and interpreted from soft copy. Current study was also evaluated with ICAD version 7.2. CLINICAL: Baseline screening. Patient has no complaints. No personal history of cancer. No family history of breast cancer. COMPARISONS: No prior exams were available for comparison. BREAST TISSUE:There are scattered fibroglandular densities in both breasts. FINDINGS: There is a 3 cm focal asymmetry in the left breast at 4 o'clock posterior depth. No other significant masses, calcifications, or other findings are seen in either breast. IMPRESSION: BI-RAD 0 ADDITIONAL IMAGING EVALUATION NEEDED The 3 cm focal asymmetry in the left breast is indeterminate. An immediate follow-up is recommended. The patient has been or will be contacted. Electronically signed by: Danielito Young M.D. /penrad:12/24/2017 08:46:59 Instrument Maker And Repairer: Zara PAEZ)(Tonio), [facility] letter sent: Additional Imaging Reading location: [place] BI-RADS: 0 Additional Imaging Evaluation Needed Raisa Da Silva APRN, THAD IMG MAMMO ORDERABLES Elyssa l Result from Last 3 Months or Most Recently Relevant to Health Maintenance Insurance [facility] Care Teams Flumer Relationship Specialty Start Date End Date Fuentes Salomon, [address] [place] [address] PCP - General Physician Boiler Mechanic 10/11/17
--- OUTSIDE RECORDS SUMMARY | 2024-11-11 17:14 | XMS_ITS | Data Portability ---
Author Organization [facility] L[place] Address [address] [place] [address] Care Team Providers Care Wildlife Biologist Name Role Phone MARIYA SALOMON Primary Care Provider SAIRA GARCIA Grant Manager Assessment No assessment recorded. Plan of Treatment Reminders Order Date Submit Date Provider Last Modified By Organization Details Last Modified Time Details Appointments ANY 15 2024 03:30P Tonio Salomon PA-C Not available Not available Not available Lab cytology report, thin prep, smear or scraping , cervical or vaginal 2024 025 L[facility]IE [facility], [address] [facility], [facility] [address], [place], [address], 09/18/2024 07:06:42 influenz a virus A + B + SARS-CoV -2 (COVID19 ) Ag panel, rapid IA, upper respirat ory specimen 2024 025 LACIE In-Office Order, Internal Use Only DO Not Attach Compendium DO Not Attach Compendium, Do Not Delete/merge, [id number] 07/01/2024 17:36:01 noninvas james colorect al cancer DNA + occult blood screenin g, QL, stool 2023 024 [facility] (Cologuard Orders Only), [address], [address], [place], [address], 01/13/2024 08:46:25 CBC 2023 024 Evi [facility], [address] [facility] [address], [place], [address], 12/27/2023 11:16:15 CMP, serum or plasma 2023 024 L[facility], [address] [facility], [facility], [place], [address], 12/27/2023 11:16:14 lipid panel, serum 2023 024 L[facility]IE [facility], [address] [facility], [facility] [address], [place], [address], 12/27/2023 11:16:14 HbA1c (hemoglo bin A1c), blood 2023 024 DALHART In-Office Order, Internal Use Only DO Not Attach Compendium DO Not Attach Compendium, Do Not Delete/merge, [id number] 12/26/2023 11:21:20 Referral None recorded . Procedures None recorded . Surgeries None recorded . Imaging XR, shoulder [address] [facility] [address], [place], [address], 11/11/2024 17:45:28 MAMMO, screenin g, bilatera l 2024 025 [facility], [address] [place], [address], 11/11/2024 04:16:27 Medication Orders venlafax ine ER 37.5 mg capsule, extended release 24 hr 2024 025 DALHART [facility] [place], [address] [facility] [address], [place], [address], 09/15/2024 16:13:59 Women's 50 Plus Multivit hayward 400 mcg-500 mg calcium- 20 mcg tablet 2024 025 LACIE [facility], [address] [facility] [address], [place], [address], 09/15/2024 16:13:59 valacycl ovir 1 gram tablet 2024 025 LACIE [facility], [address] [address], [place], [address], 09/15/2024 15:49:59 gabapent in 100 mg capsule 2024 025 LACIE [facility], [facility] [address] [address], [place], [address], 09/15/2024 15:49:43 Medrol (Clay) 4 mg tablets in a dose pack 2024 025 LACIE [facility], [facility] [address] [address], [place], [address], 09/15/2024 15:49:55 amoxicil rashad 875 mg tablet 2024 025 [email or web address] [facility], [facility] [address] [address], [place], [address], 07/18/2024 14:27:20 cycloben zaprine 10 mg tablet 2023 024 LACIE [facility], [facility] [address] [address], [place], [address], 12/26/2023 11:09:44 ibuprofe n 600 mg tablet 2023 024 [email or web address] [facility], [facility] [address] [address], [place], [address], 07/01/2024 16:55:54 atenolol 50 mg tablet 2023 024 [email or web address] [facility], [facility] [address] [address], [place], [address], 07/01/2024 16:55:37 Patient TargetsNo targets recorded. Patient Instructions Encounter Date Encounter Id Patient Instructions Last Modified By Organization Details Last Modified Time 12/26/2023 [id number] [facility] Not available 12/26/2023 11:08:02 07/01/2024 [id number] cough: care instructions [email or web address] Not available 07/01/2024 17:20:08 09/15/2024 [id number] hot flashes during menopause: care instructions Not available 09/15/2024 16:13:57 Quitting Tobacco : Care Instructions [email or web address] Not available 09/15/2024 16:13:57 Your women's health annual exam today was unremarkable. Continue to practice breast self awareness like we discussed. Come back to the office with any breast changes, nipple discharge, change to your menstrual cycle, or with complaints of unusual odorous discharge. Otherwise, come back in 1 year for your next well woman annual exam. Do NOT douche as it disturbs the natural balance of bacteria in the vagina and can cause infection. Avoid scented soaps or lotions. Use a basic unscented soap for only the outer skin around your vagina. Wear cotton underwear, avoid thongs, avoid spandex, leggings and wear panty liners daily. You can try probiotics. Use a condom with EVERY sexual encounter to minimize your risk for sexually transmitted infection and unplanned . 1. Start taking a multivitamin, calcium and vitamin D3 supplements daily to keep your bones healthy. 2. Exercise and keep a healthy diet to minimize risk for stroke, heart attack and osteoporosis. 3. Use a once a day vaginal moisturizer (like Replens) if you have bothersome dryness. If dryness continues to be a problem, make an appointment to see us to discuss other options. Keep taking your multivitamins. Your bones get weaker after menopause, and you need to take your calcium and vitamin D3, which are multivitamins, to make sure your bones stay strong. Regular exercise, like walking, is very good to keep bones healthy. Try exercising for 30 minutes 5 times a week. Try having 2-3 servings of low fat dairy every day. Lubrication can help make penetrative intercourse more comfortable. There are 3 types of lube: Water-based (examples are KY jelly, Astroglide): inexpensive, can buy over the counter, often gets sticky and needs to be reapplied. Oil-based (examples olive oil, coconut oil): inexpensive, can stain sheets, do not use with condoms. Silicone-based (examples Uber Lube, Pjur): more expensive, a little goes a long way, does not have scents or stain sheets. Hot flashes: Take venlafaxine 37.5 mg 1 pill daily We will follow up in 1 month Not available 09/15/2024 16:12:27 Reason for Referral None Reported. Results Created Date Observation Date Name Description Value Unit Range Abnormal Flag Note LastModifiedBy Organization Detail LastModifiedTime 12/26/1912/27/2023 LIPID PANEL cholesterol, total 248 mg/dL 100-19 9 above high normal Not Available [address], [address], 12/27/2023 11:16:13 12/26/1912/27/2023 LIPID PANEL triglyceride s 195 mg/dL 0-149 above high normal Not Available [address], [address], 12/27/2023 11:16:13 12/26/1912/27/2023 LIPID PANEL HDL cholesterol 48 mg/dL >39 Not Available [address], [address], 12/27/2023 11:16:13 12/26/1912/27/2023 LIPID PANEL VLDL cholesterol eva 36 mg/dL 5-40 Not Available [address], [address], 12/27/2023 11:16:13 12/26/1912/27/2023 LIPID PANEL LDL chol calc ([facility]) 164 mg/dL 0-99 above high normal Not Available [address], [address], 12/27/2023 11:16:13 12/26/19 24 12/27/2023 COMP. METAB OLIC PANEL (14) glucose 125 mg/dL 70-99 above high normal Not Available [address], [address], 12/27/2023 11:16:14 12/26/19 24 12/27/2023 COMP. METAB OLIC PANEL (14) BUN 11 mg/dL 6-24 Not Available [address], [address], 12/27/2023 11:16:14 12/26/19 24 12/27/2023 COMP. METAB OLIC PANEL (14) creatinine 0.94 mg/dL 0.57-1 .00 Not Available [address], [address], 12/27/2023 11:16:14 12/26/19 24 12/27/2023 COMP. METAB OLIC PANEL (14) eGFR 73 mL/mi n/1.7 3 >59 Not Available [address], [address], 12/27/2023 11:16:14 12/26/19 24 12/27/2023 COMP. METAB OLIC PANEL (14) BUN/creatini ne ratio 12 9-23 Not Available [address], [address], 12/27/2023 11:16:14 12/26/19 24 12/27/2023 COMP. METAB OLIC PANEL (14) sodium 144 mmol/ L 134-14 4 Not Available [address], [address], 12/27/2023 11:16:14 12/26/19 24 12/27/2023 COMP. METAB OLIC PANEL (14) potassium 4.2 mmol/ L 3.5-5. 2 Not Available [address], [address], 12/27/2023 11:16:14 12/26/19 24 12/27/2023 COMP. METAB OLIC PANEL (14) chloride 105 mmol/ L 96-106 Not Available [address], [address], 12/27/2023 11:16:14 12/26/19 24 12/27/2023 COMP. METAB OLIC PANEL (14) carbon dioxide, total 22 mmol/ L 20-29 Not Available [address], [address], 12/27/2023 11:16:14 12/26/19 24 12/27/2023 COMP. METAB OLIC PANEL (14) calcium 9.8 mg/dL 8.7-10 .2 Not Available [address], [address], 12/27/2023 11:16:14 12/26/19 24 12/27/2023 COMP. METAB OLIC PANEL (14) protein, total 6.5 g/dL 6.0-8. 5 Not Available [address], [address], 12/27/2023 11:16:14 12/26/19 24 12/27/2023 COMP. METAB OLIC PANEL (14) albumin 4.4 g/dL 3.8-4. 9 Not Available [address], [address], 12/27/2023 11:16:14 12/26/1912/27/2023 COMP. METAB OLIC PANEL (14) globulin, total 2.1 g/dL 1.5-4. 5 Not Available [address], [address], 12/27/2023 11:16:14 12/26/19 12/27/2023 COMP. METAB OLIC PANEL (14) bilirubin, total 0.4 mg/dL 0.0-1. 2 Not Available [address], [address], 12/27/2023 11:16:14 12/26/19 24 12/27/2023 COMP. METAB OLIC PANEL (14) alkaline phosphatase 94 IU/L 44-121 Not Available [address], [address], 12/27/2023 11:16:14 12/26/19 24 12/27/2023 COMP. METAB OLIC PANEL (14) AST (SGOT) 17 IU/L 0-40 Not Available [address], [address], 12/27/2023 11:16:14 12/26/19 24 12/27/2023 COMP. METAB OLIC PANEL (14) ALT (SGPT) 23 IU/L 0-32 Not Available [address], [address], 12/27/2023 11:16:14 12/26/19 24 12/27/2023 CARDI OVASC ULAR REPOR T interpretati on Note Suppl ement al repor t is avail able. Not Available [address], [address], 12/27/2023 11:16:15 12/26/19 24 12/27/2023 CARDI OVASC ULAR REPOR T pdf . Not Available [address], [address], 12/27/2023 11:16:15 12/26/19 24 12/27/2023 CBC, PLATE LET, NO DIFFE RENTI AL WBC 10.6 x10e3 /uL 3.4-10 .8 Not Available [facility] & [address], [address], 12/27/2023 11:16:15 12/26/1912/27/2023 CBC, PLATE LET, NO DIFFE RENTI AL RBC 5.65 x10e6 /uL 3.77-5 .28 above high normal Not Available [address], [address], 12/27/2023 11:16:15 12/26/1912/27/2023 CBC, PLATE LET, NO DIFFE RENTI AL hemoglobin 16.6 g/dL 11.1-1 5.9 above high normal Not Available [address], [address], 12/27/2023 11:16:15 12/26/1912/27/2023 CBC, PLATE LET, NO DIFFE RENTI AL hematocrit 50.0 % 34.0-4 6.6 above high normal Not Available [address], [address], 12/27/2023 11:16:15 12/26/19 24 12/27/2023 CBC, PLATE LET, NO DIFFE RENTI AL MCV 89 fL 79-97 Not Available [address], [address], 12/27/2023 11:16:15 12/26/1912/27/2023 CBC, PLATE LET, NO DIFFE RENTI AL MCH 29.4 pg 26.6-3 3.0 Not Available [address], [address], 12/27/2023 11:16:15 12/26/19 24 12/27/2023 CBC, PLATE LET, NO DIFFE RENTI AL MCHC 33.2 g/dL 31.5-3 5.7 Not Available [address] [place], [address], 12/27/2023 11:16:15 12/26/19 24 12/27/2023 CBC, PLATE LET, NO DIFFE RENTI AL RDW 13.4 % 11.7-1 5.4 Not Available [address], [address], 12/27/2023 11:16:15 12/26/19 24 12/27/2023 CBC, PLATE LET, NO DIFFE RENTI AL platelets 291 x10e3 /uL 150-45 0 Not Available [address], [address], 12/27/2023 11:16:15 12/26/19 24 12/26/2023 HbA1c (hemo globi n A1c), blood HbA1c 6.0 Not Available In-Office Order Internal Use Only DO Not Attach Compendium DO Not Attach Compendium, Do Not Delete/merge, [id number] 12/26/2023 11:07:46 01/09/20 24 01/09/2024 COLOG UARD cologuard result reportable NEGATI VE negati ve normal NEGAT JAMES TEST RESUL T. A negat james Colog uard resul t indic ates a low likel ihood that a color ectal cance r (CRC) or advan vahe adeno ma (talib omato us polyp s with more advan vahe pre-m align ant featu res) is prese nt. The chanc e that a perso n with a negat james Colog uard test has a color ectal cance r is less than 1 in 1500 (nega tive predi ctive value >99.9 %) or has an advan vahe adeno ma is less than 5.3% (nega tive predi ctive value 94.7% ). These data are based on a prosp ectiv e cross -sect ional study of 10,00 0 indiv idual s at [place] ge risk for color ectal cance r who were scree corbin with both Colog uard and colon oscop y. (Impe riale T. et al, N Engl J Med 2014; 370(1 4):12 86-12 97) The ashish l value (refe rence range ) for this assay is negat james. COLOG UARD RE-SC REENI NG RECOM MENDA TION: Perio dic color ectal cance r scree homero is an impor tant part of preve ntive healt hcare for asymp tomat ic indiv idual s at [facility] risk for color ectal cance r. Follo wing a negat james Colog uard resul t, the Ameri can Cance r Socie ty and U.S. Multi -Soci ety Task Force scree homero guide lines recom mend a Colog uard re-sc reeni ng inter nicholas of 3 years . Refer ences : Ameri can Cance r Socie ty Guide line for Color ectal Cance r Scree homero: https ://soraya w.can cer.o rg/ca ncer/ colon -rect al-ca ncer/ detec tion- diagn osis- stagi ng/ac s-rec ommen datio ns.ht ml.; [place] DK, Michele foreman CR, Chaparrita major JK, Color ectal Cance r Scree homero: Recom menda tions for Physi cians and Patie nts from the U.S. Multi -Soci ety Task Force on Color ectal Cance r Scree homero , Am Alvin solis 2017; 112:1 016-1 030. TEST DESCR IPTIO N: [place] site algor ithmi c vicente sis of stool DNA-b iomar kers with hemog lobin immun oassa y. Quant itati ve value s of indiv idual bioma rkers are not repor table and are not assoc iated with indiv idual bioma rker resul t refer ence range s. Colog uard is inten ded for color ectal cance r scree homero of adult s of eithe r sex, 45 years or older , who are at [facility] for color ectal cance r (CRC) . Colog uard has been appro andrew for use by the U.S. FDA. The perfo rmanc e of Colog uard was estab lishe d in a cross secti onal study of [facility] adult s aged 50-84 . Colog uard perfo rmanc e in patie nts ages 45 to 49 years was estim ated by debby zhang sis of near- age group s. Colon oscop ies perfo rmed for a posit james resul t may find as the most clini sang signi fican t lesio n: color ectal cance r [4.0% ], advan vahe adeno ma (incl uding sessi le david margaret polyp s great er than or equal to 1cm diame ter) [20%] or non- advan vahe adeno ma [31%] ; or no color ectal neopl isidro [45%] . These estim ates are deriv ed from a prosp ectiv e cross -sect ional scree homero study of 0 indiv idual s at [facility] risk for color ectal cance r who were scree corbin with both Colog uard and colon oscop y. (Savita Buenrostro et al, N Engl J Med 2014; 370(1 4):12 86-12 97.) Colog uard may produ ce a false negat james or false posit james resul t (no color ectal cance r or preca ncero us polyp prese nt at colon oscop y follo w up). A negat james Colog uard test resul t does not guara ntee the absen ce of CRC or advan vahe adeno ma (pre- cance r). The curre nt Colog uard scree homero inter nicholas is every 3 years . (Amer ican Cance r Socie ty and U.S. Multi -Soci ety Task Force ). Colog uard perfo rmanc e data in a 0 patie nt pivot al study using colon oscop y as the refer ence metho d can be acces sed at the follo wing locat ion: www.e xactl abs.c om/re sults . Addit ional descr iptio n of the Colog uard test proce ss, warni ngs and preca ution s can be found at www.c dashawn michelle.c om. Not Available [facility] (Cologuard Orders Only) [address], [place], [address], 01/13/2024 08:46:24 07/01/19 25 07/01/2024 influ essence virus A + B + SARS- CoV-2 (COVI D19) Ag panel , rapid IA, upper respi rator y speci men Flu A negati ve Not Available In-Office Order Internal Use Only DO Not Attach Compendium DO Not Attach Compendium, Do Not Delete/merge, [id number] 07/01/2024 16:58:05 07/01/19 25 07/01/2024 influ essence virus A + B + SARS- CoV-2 (COVI D19) Ag panel , rapid IA, upper respi rator y speci men Flu B negati ve Not Available In-Office Order Internal Use Only DO Not Attach Compendium DO Not Attach Compendium, Do Not Delete/merge, [id number] 07/01/2024 16:58:05 07/01/19 25 07/01/2024 influ essence virus A + B + SARS- CoV-2 (COVI D19) Ag panel , rapid IA, upper respi rator y speci men Rapid SARS CoV 2 Ag, QL IA, respiratory specimen negati ve Not Available In-Office Order Internal Use Only DO Not Attach Compendium DO Not Attach Compendium, Do Not Delete/merge, [id number] 07/01/2024 16:58:05 09/16/19 25 09/16/2024 IGP, APTIM A HPV, RFX 16/18 ,45 HPV aptima NEGATI VE negati ve This nucle ic acid ampli ficat ion test detec ts fourt een high- risk HPV types (16,1 8,31, 33,35 ,39,4 5,51, 52,56 ,58,5 9,66, 68) witho ut diffe renti ation . Not Available [facility] ([facility]) [address], [place], [address], 09/18/2024 07:06:41 09/16/19 25 09/17/2024 IGP, APTIM A HPV, RFX 16/18 ,45 diagnosis: MARIOLA Ramírez NEGAT JAMES FOR INTRA EPITH ELIAL LESIO N OR DAT HANCOCK . Not Available [facility] ([facility]) [address] [facility], [place], [address], 09/18/2024 07:06:41 09/16/19 25 09/17/2024 IGP, APTIM A HPV, RFX 16/18 ,45 specimen adequacy: MARIOLA Ramírez Satis facto ry for evalu ation . No endoc ervic al cells are prese nt. This is consi stent with a histo ry of hyste recto my. Not Available [facility] ([facility]) [address] [place], [address], 09/18/2024 07:06:41 09/16/19 25 09/17/2024 IGP, APTIM A HPV, RFX 16/18 ,45 clinician provided ICD10: MARIOLA Ramírez Z01.4 19 Not Available [facility] ([facility]) [address] [place], [address], 09/18/2024 07:06:41 09/16/19 25 09/17/2024 IGP, APTIM A HPV, RFX 16/18 ,45 performed by: MARIOLA Valles , Cytol ogist (ASCP ) Not Available [facility] ([facility]) [address] [place], [address], 09/18/2024 07:06:41 09/16/19 25 09/17/2024 IGP, APTIM A HPV, RFX 16/18 ,45 . . Not Available [facility] ([facility]) [address] [place], [address], 09/18/2024 07:06:41 09/16/19 25 09/17/2024 IGP, APTIM A HPV, RFX 16/18 ,45 note: MARIOLA Ramírez The Pap smear is a scree homero test desig corbin to aid in the detec tion of lenore ligna nt and malig nant condi tions of the uteri ne cervi x. It is not a diagn ostic proce dure and shoul d not be used as the sole means of detec ting cervi eva cance r. Both false -posi tive and false -nega tive repor ts do occur . Not Available [facility] ([facility]) [address] [facility], [place], [address], 09/18/2024 07:06:41 09/16/19 25 09/17/2024 IGP, APTIM A HPV, RFX 16/18 ,45 test methodology: COMMEN T This liqui d based ThinP rep(R ) pap test was scree corbin with the use of an image guide d syste m. Not Available [facility] ([facility]) [address] [place], [address], 09/18/2024 07:06:41 09/16/19 25 09/17/2024 IGP, APTIM A HPV, RFX 16/18 ,45 HPV genotype reflex COMMEN T Crite juan not met, HPV Genot ype not perfo rmed. Not Available [facility] ([facility]) [address] [facility], [place], [address], 09/18/2024 07:06:41 09/19/19 25 09/18/2024 SARS- CoV+S ARS-C oV-2 (COVI D-19) Ag [Pres ence] in Respi rator y syste m speci men by Rapid immun oassa y sars-cov-2 (covid-19) Ag [presence] in respiratory system specimen by rapid immunoassay NEGATI VE text: negati ve CORON AVIRU S ANTIG EN IA NEGAT JAMES NEGAT JAMES 09/18 4:02 PM CDT [facility] Not Available Not Available 09/18/2024 17:43:11 09/19/19 25 09/18/2024 SARS- CoV+S ARS-C oV-2 (COVI D-19) Ag [Pres ence] in Respi rator y syste m speci men by Rapid immun oassa y specimen type NASAL SPECI MEN TYPE NASAL 09/18 3:35 PM CDT [facility] Not Available Not Available 09/18/2024 17:43:11 Result Notes None recorded. Problems Name Problem SNOMED Code Status Onset Date Resolution Date Notes Provider Name and Address Organization Details Recorded Time Upper respiratory infection 78783568 Active NORMA [place], [place] - [facility] 09:47:54 Spasm of back muscles 904339010 Active [place] [facility] 09:47:55 Disorder of rotator cuff 183626626 Active [place] [facility] 09:47:54 Insomnia 982434219 Active [place]MA [place] [facility] 09:47:54 Anterior knee pain 403620370 Active [place] [facility] 09:47:54 Sinusitis 79509996 Active [place]MA [place] [facility] 09:47:54 Anxiety 45817307 Active [place]MA [place] [facility] 09:47:54 Problem Notes None recorded. Procedures Surgical History Date Name Laterality Status Provider Name and Address Organization Details Recorded Time 02/09/20 18 Most Recent Mammogram completed Mabel Daily [place] - [facility] 10/01/2019 14:59:34 02/09/20 18 Date of Last Mammogram completed Clarita Jackson [place] - [facility] 12/12/2021 12:03:40 12/23/19 18 repair of cystocele completed Saira Garcia [place] - [facility] 10/29/2019 11:03:07 05/28/19 05 Total hysterectomy completed Melida Saldivar APN, ARTIST SCIENTIFIC-C Attn: Accounting,[address] [place], [address], [place] [facility] 09/19/2023 12:17:52 05/28/18 96 reduction plasty of bilateral breasts completed Saira Garcia [facility] 10/29/2019 11:00:34 Other completed Mabel Daily [place] - [facility] 10/01/2019 15:04:34 Arthroscopic Surgery completed Kat Gutierrez MA [facility] 07/02/2014 14:42:03 Caesarean Section completed Mabel Daily [place] - [facility] 10/01/2019 15:04:16 Imaging Results None recorded. Procedure Notes None recorded. Medical Equipment None Reported. Allergies Allergen ID Allergen Name Allergen Category Reaction Reaction Severity Criticality Documentation Date Start Date Code Code System Note Provider Name and Address Organization Details Recorded Time 31359 codeine medicatio n rash mild Not available 07/02/20142019 2670 RxNorm NORMA [place], [place] - [facility] 1 09:47:54 76257 acetamino phen / hydrocodo ne medicatio n Not available Not available Not available 07/02/2014 70614 2 RxNorm NORMA Means, [facility] 5 14:42:03 Medications Name Sig Start Date [...] Available Not Available tramadol 50 mg tablet 12/12 completed Not Available Not Available Not [...] supoprt. 2024 active Not Available Not Available Not Avai lable Nurtec ODT 75 mg disintegr ating tablet 04/25 completed Not Available Not Available Not Available Vitals Date Recorded Body height Body mass index (BMI) Body weight Oxygen saturation Oxygen saturation in Arterial blood by Pulse oximetry Heart rate Systolic blood pressure Diastolic blood pressure Provider Name and Address Organization Details Last Updated DateTime 5 157.48 cm 23.4 kg/m2 33623.8 2 g 97 % 97 % 99 /min 138 mm[Hg] 80 mm[Hg] Clarita Jackson [place] - [facility] 5 16:59:45 Date Recorded Body height Body mass index (BMI) Body weight Respiratory rate Oxygen saturation Oxygen saturation in Arterial blood by Pulse oximetry Heart rate Systolic blood pressure Diastolic blood pressure Provider Name and Address Organization Details Last Updated DateTime 5 157.48 cm 23.3 kg/m2 59625.3 9 g 16 /min 97 % 97 % 101 /min 140 mm[Hg] 78 mm[Hg] Shannan Oliveira [place] - [facility] 5 14:29:14 Date Recorded Body height Body mass index (BMI) Body weight Respiratory rate Heart rate Systolic blood pressure Diastolic blood pressure Provider Name and Address Organization Details Last Updated DateTime 5 157.48 cm 22.7 kg/m2 10163.1 7 g 18 /min 105 /min 156 mm[Hg] 86 mm[Hg] Shannan Oliveira MA [facility] 5 15:52:16 Date Recorded Body height Body mass index (BMI) Body weight Oxygen saturation Oxygen saturation in Arterial blood by Pulse oximetry Heart rate Respiratory rate Systolic blood pressure Diastolic blood pressure Provider Name and Address Organization Details Last Updated DateTime 5 157.48 cm 22.7 kg/m2 06927.4 5 g 98 % 98 % 105 /min 18 /min 168 mm[Hg] 82 mm[Hg] Shannan Oliveira MA [facility] 5 16:29:16 Date Recorded Body height Body mass index (BMI) Body weight Oxygen saturation Oxygen saturation in Arterial blood by Pulse oximetry Heart rate Systolic blood pressure Diastolic blood pressure Provider Name and Address Organization Details Last Updated DateTime 4 157.48 cm 24.7 kg/m2 31395.9 7 g 100 % 100 % 101 /min 165 mm[Hg] 90 mm[Hg] Clarita Jackson MA [place] [facility] 4 10:45:41 Social History Question Answer Notes LastModified by Organizat ion Details LastModified Time Tobacco Smoking Status Current Every Day Smoker Kat Gutierrez MA [facility], [place] [facility] 07/02/2014 14:42:02 Is Blood Transfusion Acceptable In [...] not available 10/01/2019 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 Never used electronic cigarettes Information not available 10/01/2019 What is your exercise level? Moderate Information not available 10/01/2019 Mental Status Question Answer Note LastModified by Organization D etails LastModified Time Do you feel stressed (tense, restless, nervous, or anxious, or unable to sleep at night)? [id number] [email or web address] Information not available 07/20/2022 Family History [...] High Blood Pressure N Breast Cancer N Thyroid Problems N Kidney or Bladder Problems N GI Problems N Depression Y Blood Clots N Lung Disease N Acne Y Breast Problem N Eating Disorder N Anemia N Anesthesia Complications N Headaches/Migraines Y Anxiety Disorder N Diabetes N Ovarian Cancer N Muscle, Joint, or Bone Problems Y [...] Immunizations Vaccine Type Date Status Note Provider Vamshi e and Address Organization Details Recorded Time COVID-19, mRNA, LNP-S, PF, 30 mcg/0.3 mL dose 10/15/2020 completed STEVEN CHUA NP Attn: [address] [place], [address], [place] [facility] 09/15/2024 17:55:00 COVID-19, mRNA, LNP-S, PF, 30 mcg/0.3 mL dose 11/05/2020 completed STEVEN CHUA NP Attn: [address] [place], [address], [place] [facility] 09/15/2024 17:55:00 Past Encounters Encounter ID Performer Location Encounter Start Date Encounter Closed Date Diagnosis/Indication Diagnosis SNOMED-CT Code Diagnosis ICD10 Code Diagnosis Note [id number] ALANNA Mitchell [address] [place] [address] 07/02/2014 14:32:46 07/02/2014 15:01:44 Upper respiratory infection 43373851 Spasm of back muscles 621720366 Disorder o f rotator cuff 363667413 [id number] ALANNA Mitchell [facility] [address] [place] [address] 07/17/2014 11:47:00 07/17/2014 13:03:45 Disorder of rotator cuff 042130447 [id number] ALANNA Mitchell [facility] [address] [place] [address] 08/21/2014 16:47:07 08/21/2014 17:21:11 [id number] Maicol Hector MD [facility] [address] [place] [address] 01/27/2015 11:38:27 01/27/2015 12:18:36 Upper respiratory infection [id number] [facility] [id number] MD [facility] [address] [place] [address] 04/02/2015 11:21:41 04/02/2015 11:51:18 Anterior knee pain 848374089 M25.561 [id number] Maicol Hector MD [facility] [address] [place] [address] 04/15/2015 16:30:18 04/15/2015 17:01:28 Spasm of back muscles 061011599 M62.830 [id number] Maicol Hector MD [facility] [address] [place] [address] 05/13/2015 10:47:26 05/13/2015 11:36:30 Anterior knee pain 971368409 M25.561 [id number] Maicol Hector MD [facility] [address] [place] [address] 06/29/2015 15:30:54 06/29/2015 16:46:05 Sinusitis 29738363 J32.9 [facility] [id number] F41.9 [id number] Maicol Hector MD [facility] [address] [place] [address] 07/13/2015 10:22:22 07/13/2015 10:41:03 Sinusitis 52864016 J32.9 Upper resp iratory infection 83868703 J06.9 [id number] Mariya Salomon PA-C [facility] [address] [place] [address] 12/08/2015 16:40:07 12/08/2015 17:13:53 Upper respiratory infection 10118949 J06.9 [id number] Mariya Salomon PA-C [facility] [address] [place] [address] 08/10/2016 10:47:28 08/10/2016 12:38:53 Acute maxillary sinusitis 81824288 J01.01 Upper resp iratory infection 49865287 J06.9 [id number] JULISSA Hassan-CARMELITA [facility] [address] [place] [address] 05/02/2017 11:13:50 05/11/2017 14:06:08 Screening mammography 74464221 Z12.31 Gynecologi c examination 45529234 Z01.649 [id number] Maicol Hector MD [facility] [address] [place] [address] 08/23/2017 14:15:52 08/23/2017 15:59:37 Acute mycoplasmal bronchitis 619537716 J20.0 Spasm of back muscles 20 3267688 M62.336 [id number] Maicol Hector MD [facility] [address] [place] [address] 11/27/2017 13:47:22 11/27/2017 14:38:36 Pain of multiple joints 78712985 M25.50 [id number] Maicol Hector MD [facility] [address] [place] [address] 01/15/2018 11:20:44 01/15/2018 12:07:01 Acute maxillary sinusitis 79627807 J01.01 [id number] Mariya Salomon PA-C [facility] [address] [place] [address] 02/14/2018 15:38:26 02/14/2018 16:17:30 Essential hypertension 44788865 I10 Allergic conjunctivitis 948245030 H10.11 [id number] Mariya Salomon PA-C [facility] [address] [place] [address] 04/05/2018 14:38:21 04/05/2018 16:01:23 Acute maxillary sinusitis 10421388 J01.01 [id number] Mariya Salomon PA-C [facility] [address] [place] [address] 12/27/2018 13:58:39 12/30/2018 16:05:24 New daily persistent headache 8258923662 82964 G44.52 [id number] Mariya Salomon PA-C [facility] [address] [place] [address] 07/25/2019 10:20:43 07/25/2019 12:18:50 Acute maxillary sinusitis 84497250 J01.01 Acute low back pain 2788 22841 M54.5 [id number] MD [facility] [address] [place] [address] 10/01/2019 12:58:50 10/02/2019 10:27:58 Genital warts 325550811 A63.0 Likely diagnosis d/w pt. Treatment options discussed. Pt. wants cream. Rx sent. Instructio ns discussed. Transmissi on by direct contact and avoidance of transmissi on discussed. RTO for follow-up and AE after COVID-19 pandemic restrictio ns are lifted. Possibly in October, dwp. Pt. to make appt. [id number] MD [facility] ([facility]) [address] [place] [address] 10/29/2019 10:13:49 10/30/2019 09:10:46 Gynecologic examination 95518066 Z01.419 Pt. with h/o hysterecto my for BONNY III. Last pap 2005. Pap done. Screening for malignant neoplasm of breast 123424876 Z12.39 Last mammogram done 10/09/07, recommende d 6 mo. follow-up. Mammogram ordered. Condyloma acuminata of vulva 139257548 A63.0 Pt. tried the cream for one week and it did not work. Discussed need to use it for 16 weeks. Pt. states she cannot afford the $13 cost per week. However, her insurance covers the laser removal and she wants that done. Referral to promotion specialist who does laser wart removal generated. Cigarette smoker 2316702 7 F17.210 Pt. spending $25 per week on cigarettes . She is down from 2 PPD to 1 PPD. Continued cutting down and cessation discussed. Overweight 324801080 E66 .3 Pt is barely overweight . Nutrition and exercise discussed. [id number] [facility] [address] [place] [address] 03/01/2021 09:46:29 03/10/2021 07:02:31 Suspected COVID-19 674722712 Z20.645 [id number] [facility] [address] [place] [address] 12/12/2021 11:37:46 12/12/2021 12:34:14 Acute maxillary sinusitis 54780371 J01.01 [id number] Mariya Salomon PA-C [facility] [address] [place] [address] 07/20/2022 11:43:55 07/20/2022 12:34:31 Tobacco dependence syndrome 64699209 F17.210 Pain in left foot 765460 0493 83551 M79.672 Migraine without aura 56 696075 G43.009 Primary insomnia 1475790 F51.01 Spasm of back muscles 20 0569886 M62.830 Acute low back pain 2788 22206 M54.50 Overweight 053328257 E66 .3 [id number] Mariya Salomon PA-C [facility] [address] [place] [address] 04/25/2023 15:07:00 04/26/2023 09:59:46 Viral syndrome 404971273 B34.9 Acute maxi llary sinusitis 83263690 J01.01 [id number] Mariya Salomon PA-C [facility] [address] [place] [address] 05/30/2023 16:15:32 05/31/2023 11:00:24 Viral syndrome 099866716 B34.9 Upper resp iratory infection 64924871 J06.9 Acute bron chitis with bronchospasm 06344563 J20.8 Acute maxi llary sinusitis 41564062 J01.01 Overweight 955210746 E66 .3 [id number] Mariya Salomon PA-C [facility] [address] [place] [address] 07/09/2023 15:21:26 07/10/2023 10:35:37 Cough 24025821 R05.9 Upper resp iratory infection 29139646 J00 [id number] Mariya Salomon PA-C [facility] [address] [place] [address] 08/28/2023 10:39:58 09/13/2023 16:09:12 Cough 53558958 R05.1 Acute maxi llary sinusitis 52860265 J01.01 Overweight 243003482 E66 .3 [id number] Maicol Hector MD [facility] [address] [place] [address] 12/26/2023 10:35:29 12/27/2023 09:11:38 Spasm of back muscles 827792404 M62.830 Essential hypertension 62365981 I10 Screening for malignant neoplasm of colon 904988838 Z12.11 Body mass index 20-24 - normal 603172731 Z68.24 Acute low back pain 2788 00874 M54.50 [id number] Maicol Hector MD [facility] [address] [place] [address] 07/01/2024 16:35:13 07/04/2024 09:53:22 Cough 77455732 R05.1 Recurrent acute maxillary sinusitis 4023875397 6874957 J01.01 Body mass index 20-24 - normal 681198586 Z68.24 [id number] Maicol Hector MD [facility] [address] [place] [address] 07/18/2024 14:12:18 07/21/2024 11:26:07 Exanthem due to herpes zoster 912492840 B02.8 Body mass index 20-24 - normal 091203139 Z68.23 [id number] STEVEN CHUA NP [facility] [address] [place] [address] 09/15/2024 15:13:29 09/19/2024 10:47:00 Gynecologic examination 20864618 Z01.419 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 VAginal Pap+ HPV cotesting done; HX of BONNY 3 on pap, FLAKO done . STI screening declined.3 . Pt is post menopausal .4. Discussed breast self awareness5 . Mammogram ordered per ACOG guidelines 6. Educated on STI reduction and prevention . Encouraged condom use.7. Discussed when to return to clinic for /[employer] complaints . Screening mammography 24 212182 Z12.31 Last mammogram done 2018Order placed Menopause present 836293 006 Z78.0 pt is post menopausal Discussed vaginal changes, moisturize rs and lubricatio nDiscussed returning to clinic with any vaginal bleedingDi scussed Calcium and Vitamin D supplement ation Smoker 79944143 F17.200 Menopausal flushing 1984 04512 N95.1 Pt with hot flashes+ smokerWill start Venlafaxin e at 37.5 mgFollow up in 4-6 weeks, if some improvemen t noted. Will increase to 75 mg [id number] Maicol Hector MD [facility] [address] [place] [address] 11/11/2024 16:16:47 11/11/2024 16:49:04 Pain of right shoulder region 6411222359 M25.511 Health Concerns Section Related Observation LastModified by Organization Detai ls LastModified Time None Recorded Concern Status LastModified by Organization Details LastModified Time None Recorded Advance Directives Directive None Recorded Payers Insurance Date Sequence Insurance Name Policy Number Policy Frazier Covered Member ID Frazier Member ID Guarantor Name 11/11/2024 1 [facility] () Sarah Ballard [id number] Sarah Ballard 07/01/2024 1 [facility] () Sarah Ballard [id number] Sarah Ballard 07/01/2024 1 [employer] - FOR [employer] - ACTIVE D[employer]Y DEPENDENT Sarah Ballard [id number] Sarah Ballard 07/01/2024 1 [facility] Sarah Ballard [id number] Sarah Ballard 11/11/2024 [facility] - CLAIMS MANAGEMENT [facility]S [facility]NAG[facility]) [facility] Sarah Ballard 07/01/2024 1 [facility] () Sarah Ballard [id number] Sarah Ballard 08/31/2017 1 *SELF PAY* Varun Ballard Notes Date Note Type Note Provider Name and Address Organization Details Recorded Time 12/26/2023 text/html Back is all spasms...also wants to start wellbutrin vs smoking...needs labs..needs cologaelias Salomon PA-C Attn: [address] [facility], [place], [address], [facility] 12/26/2023 11:10:41 07/01/2024 text/html flu like symptoms...family has had flu pneumonia and RSV Mariya Salomon PA-C Attn: [address] [facility], [place], [address], [facility] 07/01/2024 17:20:47 07/18/2024 text/html started last fri day with a painful rash down inside of rt distal thigh.. Mariya Salomon PA-C Attn: [address] [facility], [place], [address], [facility] 07/18/2024 14:46:42 09/15/2024 text/html Sarah Ballard a 54 yo with HX of seizures, GERD and OLVERA presenting for annual promotion specialist exam. Reports FLAKO in 2004 due to BONNY 3 on pap. FLAKO was done after she completed her family. Denies any /[employer] complaints. Denies any breast changes/pain, fatigue/cold intolerance/hair loss/dry skin. Denies dyspareunia, pelvic pressure or bowel movement changes.Denies SOB/chest pain/dizziness. Denies any fever or chills. Denies any family history of breast, ovarian, endometrial or pancreatic cancer. LMP: 2005Last pap smear: Vaginal pap done 10/29/2019 NILM HRHPV NegPap due: TodayLast Mammogram: 2018Last Cologuard: 01/09/2024 NegativePatient is sexually active with a male partner. Patient has had 1 male partner in the past year.Declines STI testing today. STEVEN CHUA NP Attn: Account[facility] [facility] [address] [address], [place], [address], [facility] 09/15/2024 17:55:11 11/11/2024 text/html Sunday at work was taking a 12 pk of water off the top shelf at [employer]...felt sharp immediated stabbing pain rt shoulder..hx of rotator cuff surgery on this shoulder before...says still painful and feels swollen... Mariya Salomon PA-C Attn: Account[address] [facility] [address] [address], [place], [address], [place] [facility] 11/11/2024 16:49:01 OBGyn Episode Ob Episode Information Episode Created Date Number of Fetuses Patient Bloodtype Patient rh Status Prepregnancy Weight lbs Domestic Partner Domestic Partner Phone Father Name Product Evangelist Status 10/01/19 20 1 CLOSED Fetus Data First Name Last Name Admitted to NICU Weight (g) Sex Living Outcome Pediatric Complications Fetus ID Race Codes Race Delivery Type 2522.87 8704 M Full Term [id number] Lamont Calculation Initial Lamont Date Initial Exam Date Initial Exam Provider Initial Ultrasound Date Last Menstrual Period Date Ultra Sound Weeks Gestation 0 Eighteen To Twenty Week Lamont Update Ultra Sound Date Fundal Height At Umbil Quickening Date Ultra Sound Latest Weeks Gestation Final Lamont Confirmed By Final Lamont Confirmed Date Final Lamont Date Ultra Sound Latest Days Gestation 0 0 Menstrual History Last Menstrual Date Menses Monthly On Bcp Conception Prior Menses Frequency Hcg Plus Date Menarche Onset Age Delivery Information Delivery Date Delivery Type Labor Anesthesia Weeks Gestation Incision Type Labor Labor Length Hrs Delivered By Post Complications Tubal Sterilization Discharge Date Comments 4 Discharge Information Feeding Method Contraceptive Method Maternal HG B and HCT Levels Ob Episode Information Episode Created Date Number of Fetuses Patient Bloodtype Patient rh Status Prepregnancy Weight lbs Domestic Partner Domestic Partner Phone Father Name Product Evangelist Status 10/01/19 20 1 CLOSED Fetus Data First Name Last Name Admitted to NICU Weight (g) Sex Living Outcome Pediatric Complications Fetus ID Race Codes Race Delivery Type M Full Term [id number] Lamont Calculation Initial Lamont Date Initial Exam Date Initial Exam Provider Initial Ultrasound Date Last Menstrual Period Date Ultra Sound Weeks Gestation 0 Eighteen To Twenty Week Lamont Update Ultra Sound Date Fundal Height At Umbil Quickening Date Ultra Sound Latest Weeks Gestation Final Lamont Confirmed By Final Lamont Confirmed Date Final Lamont Date Ultra Sound Latest Days Gestation 0 0 Menstrual History Last Menstrual Date Menses Monthly On Bcp Conception Prior Menses Frequency Hcg Plus Date Menarche Onset Age Delivery Information Delivery Date Delivery Type Labor Anesthesia Weeks Gestation Incision Type Labor Labor Length Hrs Delivered By Post Complications Tubal Sterilization Discharge Date Comments 4 Discharge Information Feeding Method Contraceptive Method Maternal HG B and HCT Levels Ob Episode Information Episode Created Date Number of Fetuses Patient Bloodtype Patient rh Status Prepregnancy Weight lbs Domestic Partner Domestic Partner Phone Father Name Product Evangelist Status 10/01/19 20 1 CLOSED Fetus Data First Name Last Name Admitted to NICU Weight (g) Sex Living Outcome Pediatric Complications Fetus ID Race Codes Race Delivery Type 3175.14 4 M Full Term [id number] Vaginal Lamont Calculation Initial Lamont Date Initial Exam Date Initial Exam Provider Initial Ultrasound Date Last Menstrual Period Date Ultra Sound Weeks Gestation 0 Eighteen To Twenty Week Lamont Update Ultra Sound Date Fundal Height At Umbil Quickening Date Ultra Sound Latest Weeks Gestation Final Lamont Confirmed By Final Lamont Confirmed Date Final Lamont Date Ultra Sound Latest Days Gestation 0 0 Menstrual History Last Menstrual Date Menses Monthly On Bcp Conception Prior Menses Frequency Hcg Plus Date Menarche Onset Age Delivery Information Delivery Date Delivery Type Labor Anesthesia Weeks Gestation Incision Type Labor Labor Length Hrs Delivered By Post Complications Tubal Sterilization Discharge Date Comments 7 Discharge Information Feeding Method Contraceptive Method Maternal HG B and HCT Levels
== END 2024-11-11 17:06 | disposition home or self-care (01) ==
LOC: CHSIMG 17:12
PROVIDERS: PCP Physician Assistant; Visit Provider Physician Assistant
DX: M25.511 Pain in right shoulder (principal)
CPT/HCPCS: 73030